=== PATIENT | male | born 1955 | race Caucasian/White ===

== ENCOUNTER 2019-02-23 18:37 | Emergency (ER) | payer OTHER, SELFPAY ==
[2019-02-23 18:38] VITALS: BP 160/85; PULSE 86; RESP 22; TEMP 37.4; O2SAT 98; BMI 30.2
--- NOTE | 2019-02-23 18:42 | RAD_ITS ---
STUDY: X-RAY CHEST REASON FOR EXAM: Male, 63 years old. Chest pain TECHNIQUE: Frontal view of the chest COMPARISON: None. FINDINGS: Post CABG changes are present. The lungs are clear. There are no pleural effusions. There is no pneumothorax. The heart is normal in size. The visualized osseous structures are within normal limits. RAD/Chest 1 View (Portable) IMPRESSION: No acute thoracic pathology. Electronically Signed: Frederic Miles, at 19:09 EDT Tel , Service support ,
--- NOTE | 2019-02-23 18:42 | EKG12_ITS ---
Test Reason : CP Blood Pressure : / mmHG Vent. Rate : 086 BPM Atrial Rate : 097 BPM P-R Int : 000 ms QRS Dur : 096 ms QT Int : 356 ms P-R-T Axes : 000 -41 089 degrees QTc Int : 426 ms Atrial fibrillation Left axis deviation Poor R-Wave Progression Abnormal ECG Confirmed by AAYUSH SANTANA, ALMA ([id number]), medical editor DEBBIE PAT ([id number]) on 02/25/2019 10:38:14 AM Referred By: STEVE Confirmed By:ALMA LOONEY MD
[2019-02-23 18:46] VITALS: O2SAT 94
--- NOTE | 2019-02-23 18:54 | ED.VISSUMM ---
- ER Visit Summary Date of Service: 02/23/19 Chief Complaint: Left-sided chest pain History of Present Illness: The patient is a 63 M history of A. fib on anticoagulation, diabetes, hypertension, prior DVT after orthopedic surgery. Patient had a heart cath done in July of last year at the [facility] which she states was unremarkable. He is also had a maze procedure done for a mitral valve repair. Patient states that he had left-sided chest discomfort while at home today around 930. It lasted several hours and since resolved. He denies any nausea, diaphoresis or dyspnea. States he works out and rides a bike frequently and is been doing well. Really no exertional chest pain shortness of breath. He denies any hemoptysis. No leg pain or swelling. Physical Examination: Older male no acute distress. Vital signs are stable. He is afebrile. Currently states he is symptom-free pain-free. Pulse ox 90% on room air no signs of hypoxia. HEENT exam unremarkable. Neck nontender no JVD. Lungs clear to auscultation bilaterally. Heart irregularly irregular rate about 86. No murmur appreciated. Chest wall nontender. Well-healed sternotomy incision. Abdomen soft and nontender normal bowel sounds no peritoneal signs. Extremities moves all 4. Calves nontender without edema or cords. Normal motor strength bilaterally. Neurologically is awake alert with no focal motor deficits. Test Results: CBC White count 12. Hemoglobin 14. Electrolytes normal normal creatinine and gap. Troponin normal. EKG A. fib rate [address] of CT or ischemia. No significant change. Chest x-ray normal cardiac silhouette. Prior sternotomy. Prior valvular heart surgery. No acute process read both by myself the radiologist. I also was able to obtain the cardiac cath report from the [facility] from December 2017. At that time he had minimal luminal irregularities. No signs of any significant coronary disease. Emergency Department Course and Treatment: Patient with nonspecific, nonexertional chest pain is resolved. Will undergo cardiac work-up. Patient is doing well on repeat exam currently is pain-free at 10:02 PM. And I went over all his test results. He is comfortable being discharged home. We will follow-up with his primary care physician. Treatment Plan: Follow-up with his PCP. Continue his current medications. Disposition: Discharge Impression: Acute atypical chest pain of uncertain etiology resolved History of chronic A. fib Anticoagulated on Eliquis This note was generated with [employer] dictation software. It may contain incorrect words, spelling, and punctuation that were not noted in review of the chart prior to signing ED Disposition - Plan for ED Patient: Referrals: Maurice Garcia MD [Primary Care Provider] -
--- NOTE | 2019-02-23 18:57 | ED.DCSUM_ITS ---
- ER Visit Summary Date of Service: 02/23/19 Chief Complaint: Left-sided chest pain History of Present Illness: The patient is a 63 M history of A. fib on anticoagulation, diabetes, hypertension, prior DVT after orthopedic surgery. Patient had a heart cath done in July of last year at the [facility] which she states was unremarkable. He is also had a maze procedure done for a mitral valve repair. Patient states that he had left-sided chest discomfort while at home today around 930. It lasted several hours and since resolved. He denies any nausea, diaphoresis or dyspnea. States he works out and rides a bike frequently and is been doing well. Really no exertional chest pain shortness of breath. He denies any hemoptysis. No leg pain or swelling. Physical Examination: Older male no acute distress. Vital signs are stable. He is afebrile. Currently states he is symptom-free pain-free. Pulse ox 90% on room air no signs of hypoxia. HEENT exam unremarkable. Neck nontender no JVD. Lungs clear to auscultation bilaterally. Heart irregularly irregular rate about 86. No murmur appreciated. Chest wall nontender. Well-healed sternotomy incision. Abdomen soft and nontender normal bowel sounds no peritoneal signs. Extremities moves all 4. Calves nontender without edema or cords. Normal motor strength bilaterally. Neurologically is awake alert with no focal motor deficits. Test Results: CBC White count 12. Hemoglobin 14. Electrolytes normal normal creatinine and gap. Troponin normal. EKG A. fib rate 86 no acute signs of GA or ischemia. No significant change. Chest x-ray normal cardiac silhouette. Prior sternotomy. Prior valvular heart surgery. No acute process read both by myself the radiologist. I also was able to obtain the cardiac cath report from the [facility] from December 2017. At that time he had minimal luminal irregularities. No signs of any significant coronary disease. Emergency Department Course and Treatment: Patient with nonspecific, nonexer tional chest pain is resolved. Will undergo cardiac work-up. Patient is doing well on repeat exam currently is pain-free at 10:02 PM. And I went over all his test results. He is comfortable being discharged home. We will follow-up with his primary care physician. Treatment Plan: Follow-up with his PCP. Continue his current medications. Disposition: Discharge Impression: Acute atypical chest pain of uncertain etiology resolved History of chronic A. fib Anticoagulated on Eliquis This note was generated with [employer] dictation software. It may contain incorrect words, spelling, and punctuation that were not noted in review of the chart prior to signing ED Disposition - Plan for ED Patient: Referrals: Maurice Garcia MD [Primary Care Provider] -
[2019-02-23 19:01] LABS: Absolute Lymphocyte Count 2.17 X10^3/ul (0.83-4.51); Absolute Neutrophil Count 9.1 X10^3/uL (2.0-7.7); Basophil# 0.02 X10^3/uL; Basophil% 0.2 % (0-1); Eosinophil# 0.04 X10^3/uL; Eosinophils% 0.3 % (0-5); Hematocrit 44.9 % (40-54); Hemoglobin 14.3 g/dl (13.0-16.5); Lymphocyte # 2.17 X10^3/ul (4.0); Lymphocyte % 17.5 % (19-41); Mean Corp Hgb Conc 31.8 g/gl (32-36); Mean Corpuscular Hgb 23.1 pg (27.0-32.0); Mean Corpuscular Volume 72.4 fL (80-94); Monocyte# 1.08 X10^3/uL; Monocyte% 8.7 % (0-10); Neutrophil % 73.2 % (47-70); Platelet Count 267 K/mm3 (150-450); RBC Distribution Width CV 19.6 % (11.6-14.6); RBC Distribution Width SD 50.9 fl (35.1-43.9); White Blood Count 12.4 K/mm3 (4.4-11.0)
[2019-02-23] MEDS: Aspirin 81 MG TAB.CHEW 324 MG PO (19:05)
[2019-02-23 19:07] LABS: POSITIVE COUNT NO; POSITIVE DIFFERENTIAL NO; POSITIVE MORPHOLOGY NO
[2019-02-23 19:11] LABS: Anion Gap 11 (5-15); BUN 16 mg/dL (7-18); BUN/Creat Ratio 17.9 RATIO (10-20); Calcium,Total 9.3 mg/dL (8.5-10.1); Chloride 101 mmol/L (98-107); Creatinine, Serum 0.89 mg/dL (0.70-1.30); EST Glomerular Filtration Rate 91 mL/min (>60); Est Glom Filt Rate - Afr Amer 110 mL/min (>60); Estimated Creatinine Clearance 93.52 ml/min; Glucose 93 mg/dL (74-106); Potassium 3.6 mmol/L (3.5-5.1); Sodium Level 140 mmol/L (136-145)
[2019-02-23 19:49] VITALS: BP 136/77; PULSE 81; RESP 24; O2SAT 94
[2019-02-23 21:00] VITALS: BP 132/83; PULSE 78
[2019-02-23 22:08] VITALS: BP 119/80; PULSE 82; RESP 26; O2SAT 92
--- NOTE | 2019-02-23 22:09 | ED.DEP ---
ED Disposition - Plan for ED Patient: Disposition: Home or Assisted Living Instructions: ED Chest Pain Atypical Unkn Cause Referrals: Maurice Garcia MD [Primary Care Provider] - 3-5 Days Additional Instructions: Your labs, chest x-ray and EKG were unremarkable today except for your chronic A. fib. Return if feeling worse otherwise follow-up with your primary care physician.
== END 2019-02-23 22:20 | disposition home or self-care (01) ==
PROVIDERS: Emergency Provider Emergency Medicine; Family Provider Family Medicine; PCP Family Medicine
DX: R07.89 Other chest pain (principal); I48.2 Chronic atrial fibrillation; I10 Essential (primary) hypertension; E11.9 Type 2 diabetes mellitus without complications; Z86.718 Personal history of other venous thrombosis and embolism; Z79.01 Long term (current) use of anticoagulants; Z79.84 Long term (current) use of oral hypoglycemic drugs; Z79.899 Other long term (current) drug therapy; Z72.0 Tobacco use
CPT/HCPCS: 71045; 80048; 84484; 85025; 93005; 99285